=== PATIENT | male | born 1990 | race Caucasian/White ===

== ENCOUNTER → 2019-12-02 15:17 | Outpatient (BNVA) | payer OTHER, SELFPAY | PROVIDERS: Visit Provider Internal Medicine | DX: F11.99 Opioid use, unspecified with unspecified opioid-induced disorder (principal); Z79.899 Other long term (current) drug therapy | CPT/HCPCS: 99202 ==

== ENCOUNTER → 2019-12-06 10:10 | Outpatient (BNVA) | payer OTHER, SELFPAY | PROVIDERS: PCP Internal Medicine; Visit Provider Internal Medicine | DX: F11.99 Opioid use, unspecified with unspecified opioid-induced disorder (principal) | CPT/HCPCS: 80305; 99212 ==

== ENCOUNTER 2019-12-28 15:08 | Emergency (ER) | payer OTHER, SELFPAY ==
[2019-12-28 16:01] VITALS: BP 127/86; PULSE 92; RESP 16; TEMP 37.3; O2SAT 99; BMI 27.1
--- NOTE | 2019-12-28 16:44 | ED_ITS ---
HPI - Male Genitourinary General Chief complaint: Urogenital-Male Stated complaint: STD Time Seen by Provider: 12/28/19 16:42 Source: patient Mode of arrival: ambulatory History of Present Illness HPI Narrative: 29 y/o male with history of gonorrhea in September 2019 (s/p treatment) is presenting with painful urination x3-4 days and mild penile discharge. He states he had sexual contact with his ex-girlfriend who is known to have gonorrhea. He denies abdominal pain, N/V or fevers. No skin lesions. Related Data Allergies Allergy/AdvReac Type Severity Reaction Status Date / Time No Known Allergies Allergy Unverified 11/03/19 16:01 Review of Systems Review of Systems: Constitutional: No Fever, No Chills Cardiovascular: No Chest Pain, No SOB Respiratory: No Cough Gastrointestinal: No Nausea, No Vomiting, No Diarrhea, No abdominal Pain Genitourinary: + Dysuria, No Urinary Frequency, No Hematuria, +penile discharge Musculoskeletal: No joint pain, No Myalgias Skin: No Skin Lesions, No rash Psych: + Anxiety/Panic, No Depression Heme/Lymph: No Bruising, No Lymphadenopathy Endocrine: No Polyuria, No Polydipsia PMFSH Past Medical History Attestation statement: The following information was validated with the patient. Medical History Opioid use disorder Social History Social History Advance Directives: No Advance Directives Information Provided: No Physical Exam Vital Signs: Vital Signs: Last Vital Signs Temp 99.1 F 12/28/19 16:01 Pulse 92 12/28/19 16:01 Resp 16 12/28/19 16:01 BP 127/86 12/28/19 16:01 Pulse Ox 99 12/28/19 16:01 Body Mass Index 27.1 Appearance: Alert. Oriented X3. No acute distress. ENT: Pharynx normal. Neck: Normal inspection. Respiratory: No respiratory distress. Abdomen: Soft and nontender. +BS x4, no inguinal LAS : uncircumsized, no inflammation of glans, minimal clear urethral discharge, no skin lesions, penile shaft has palpable foreign bodies x2 consistent with a heart and star under the skin ( body beads ) Skin: Skin warm and dry. Normal skin color. Normal skin turgor. No rashes. Course Course Course Narrative: 29 y/o male with hx gonorrhea here with dysuria and penile dyscharge. UA is negative for infection or blood. GC/CT sent and pending. Will empirically treat. Stable for d/c. Patient counseled. MDM - Male Genitourinary Differential Diagnosis Differential diagnosis: Likely urinary tract infection, urethritis, epididymitis, genital herpes simplex and prostatitis Medical Records Attestation: I reviewed the patient's medical records. Lab Data Attestation: I reviewed the patient's lab results. Labs: Lab Results 12/28/19 Range/Units 17:11 Urine Color YELLOW Urine Appearance CLEAR Urine pH 6.0 (5.0-8.0) Ur Specific [place] >= 1.030 H (1.005-1.025) Urine Protein NEG (NEG-TRACE) MG/DL Urine Glucose (UA) NEG (NEG) MG/DL Urine Ketones NEG (NEG) MG/DL Urine Blood NEG (NEG) Urine Nitrite NEG (NEG) Ur Leukocyte Esterase NEG (NEG) Critical Care Time Critical Care Time Critical Care Time: No Discharge Plan Discharge Clinical Impression: Urethritis Patient Disposition: Home, Self-Care Instructions: Gonorrhea (ED), Nonspecific Urethritis in Men (ED) Additional Instructions: Your urine test today did not show any evidence of UTI or urine infection. Your gonorrhea and chlamydia test is pending. You were treated for both of these infections. We will call you if your gonorrhea or chlamydia is positive. Do not have sexual contact until all of you symptoms are completely resolved. Follow up with your doctor. If you have persistent symptoms despite treatment come back to the ER for further evaluation.
[2019-12-28 17:38] LABS: Appearance Urine CLEAR; Color Urine YELLOW; Glucose Urine UA NEG (NEG); Leukocyte Esterase Urine NEG (NEG); Nitrite Urine NEG (NEG); Specific Gravity - Urine >= 1.030 (1.005-1.025); Urine Blood NEG (NEG); Urine Ketones NEG (NEG); Urine Protein NEG (NEG-TRACE)
[2019-12-28] MEDS: cefTRIAXone sodium 250 MG, Lidocaine HCl 1 % MPF 0.9 ML IM (18:00)
[2019-12-28] MEDS: Azithromycin 500 MG TABLET 1000 MG PO (18:00)
[2019-12-29 02:52] LABS: CT PCR NOT DETECTED (Not Detect.); NG PCR NOT DETECTED (Not Detect.)
== END 2019-12-28 18:14 | disposition home or self-care (01) ==
PROVIDERS: Physician Assistant; Emergency Provider Emergency Medicine Emergency Medical Services; PCP Internal Medicine
DX: N34.2 Other urethritis (principal); Z20.2 Contact with and (suspected) exposure to infections with a predominantly sexual mode of transmission
CPT/HCPCS: 81003; 87491; 87591; 96372; 99283; 99284; J0696